=== PATIENT | female | born 1990 | race Caucasian/White ===

== ENCOUNTER 2024-10-23 13:57 | Outpatient (RCR) | payer OTHER, SELFPAY ==
[2024-10-19 15:13] LABS: Beta HCG Quantitative 13885.00 mIU/ML
[2024-10-23 15:18] LABS: Beta HCG Quantitative 13551.00 mIU/ML
== END 2025-01-17 23:59 | disposition home or self-care (01) ==
LOC: ANHLAB 13:57
PROVIDERS: PCP Family Medicine; Visit Provider Obstetrics & Gynecology Gynecology
DX: O20.0 Threatened abortion (principal); Z3A.20 20 weeks gestation of pregnancy
CPT/HCPCS: 36415; 84702

== ENCOUNTER 2024-10-31 14:14 | Outpatient (CLI) | payer OTHER, SELFPAY ==
--- NOTE | ~2024-10-31 | US_ITS ---
EXAMINATION: US OB transvaginal DATE: 10/31/2024 14:44 INDICATION: Vaginal spotting. First trimester. TECHNIQUE: Real-time transabdominal and transvaginal obstetric ultrasound. FINDINGS: No prior studies for comparison. Uterus measures 8.4 x 4.3 x 5.5 cm. No definitive gestational sac identified. Complex fluid present i n the endometrium measuring 2 x 1.5 x 2.3 cm with marginal vascularity. No definitive gestational sac or pole. No yolk sac. Right ovary measures 2 x 1.9 x 1.6 cm. Left ovary measures 1.7 x 1.8 x 2 cm. IMPRESSION: 1. No definitive gestational sac. Complex septated cystic fluid collection in the endometrium measuri ng 2.3 x 2 x 1.5 cm. No pole or yolk sac. Recommend correlation with beta-hCG levels and follow -up ultrasound as clinically warranted. Differential diagnosis includes very early intrauterine pregn tal with complex fluid possibly representing blood, decidual reaction or mucous, failing or nonviabl e intrauterine with incomplete miscarriage and ectopic with pseudogestational sac . Endometritis and molar are less favored. Reviewed, dictated and finalized at location B.
== END 2024-10-31 14:15 | disposition home or self-care (01) ==
LOC: MICIMG 14:15
PROVIDERS: PCP Family Medicine; Visit Provider Obstetrics & Gynecology Gynecology
DX: O26.851 Spotting complicating pregnancy, first trimester (principal); Z3A.00 Weeks of gestation of pregnancy not specified
CPT/HCPCS: 76817